=== PATIENT | female | born 1990 | race Hispanic/Latino ===

== ENCOUNTER 2018-12-31 07:37 | Emergency (ER) | payer SELFPAY | END 2018-12-31 08:01 | disposition home or self-care (01) | LOC: BURERS 07:37 | DX: H00.033 Abscess of eyelid right eye, unspecified eyelid (principal) | CPT/HCPCS: 99283 ==

== ENCOUNTER 2019-10-20 07:02 | Emergency (ER) | payer SELFPAY | END 2019-10-20 07:20 | disposition home or self-care (01) | LOC: BURERS 07:02 | DX: H10.9 Unspecified conjunctivitis (principal) | CPT/HCPCS: 99281 ==